=== PATIENT | male | born 1970 | race Caucasian/White ===

== ENCOUNTER 2022-10-05 04:54 | Day surgery (SDC) | payer BC ==
[2022-09-29 15:07] VITALS: BMI 29.8
[2022-10-05 12:03] VITALS: TEMP 97
[2022-10-05 12:08] VITALS: RESP 14
[2022-10-05 12:12] VITALS: BP 110/87; PULSE 42
== END 2022-10-05 12:20 | disposition home or self-care (01) ==
LOC: JASU-ENDO 04:54
PROVIDERS: ATTEND Internal Medicine Gastroenterology
PROC: 0DJD8ZZ Inspection of Lower Intestinal Tract, Via Natural or Artificial Opening Endoscopic (ICD-10-PCS; principal; 2022-10-05 10:45)
DX: Z12.11 Encounter for screening for malignant neoplasm of colon (principal); K64.8 Other hemorrhoids; Z80.0 Family history of malignant neoplasm of digestive organs